=== PATIENT | female | born 1960 | race Caucasian/White ===

== ENCOUNTER 2020-12-04 14:41 | Inpatient (IN) | payer BC ==
[2020-12-04] MEDS ORDERED: Sodium Chloride 0.9% 1000 ML 1,000 ML IV STA (14:47)
[2020-12-04] MEDS ORDERED: Sodium Chloride 0.9% 1000 ML 1,000 ML ONE (15:00)
[2020-12-04 15:12] LABS: Absolute Neutrophil Ct (ANC) 2.23 (1.4-6.9); BASOPHIL % 0.3 % (0.0-0.4); Basophil (Absolute #) 0.01 (0-0.4); Eosinophil (Absolute #) 0 (0-0.5); Hemoglobin 13.7 gm/dl (12.0-16.0); Lymphocyte (Absolute #) 0.86 (1.0-4.6); Lymphocytes % 26.1 % (24.0-44.0); Mean Cell Volume 92.5 fl (78-100); Mean Corpuscular Hemoglobin 30.2 pg (26-32); Mean Corpuscular Hgb Concent. 32.6 g/dl (32-36); Mean Platelet Volume 10.1 fl (7.5-11.0); Monocyte (Absolute #) 0.19 (0.0-1.3); Monocytes % 5.8 % (0.0-12.0); Neutrophil % 67.8 % (36.0-66.0); Platelet Count 189 K/mm3 (150-450); Red Blood Count 4.54 M/mm3 (4.1-5.4); Red Cell Distribution Width 13.2 % (11.5-14.0); White Blood Count 3.3 K/mm3 (4.0-10.5)
--- NOTE | 2020-12-04 15:17 | ERPHSYRPT ---
- History of Present Illness Time Seen by Provider: 12/04/20 15:13 Source: patient Exam Limitations: no limitations Patient Subjective Stated Complaint: Cough Triage Nursing Assessment: Patient brought back to ED via w/c and transferred self to bed. Patient A+O X3. Patient's skin flushed, warm and dry. Patient complains of fever as high 103.3, dry cough when taking a deep breath, Nausea, diarrhea, headache and fatigue since Last Saturday. Patient denies pain or discomfort. Lungs clear a/p matilde. Physician History: History 1-year-old female came to the emergency room with complaining of dry cough fever 102 F chills nausea abdominal pain generalized body ache fever and chills since last Saturday. Patient was tested for coronavirus and which was negative last Saturday patient denies any sick contact. Patient also underwent routine blood tests including complete blood count and CT abdomen and pelvis which was unremarkable. Patient continues to have a fever and chills so she came to the emergency room. She is also complaining of dry cough. Timing/Duration: day(s) (7 days) Fever Severity: moderate Fever Therapy INDUSTRIAL MAINTENANCE REPAIRER: Ibuprofen, Acetaminophen Associated Symptoms: cough, headache, muscle aches, sore throat, weakness Allergies/Adverse Reactions: No Known Drug Allergies Allergy (Unverified 12/04/20 14:52) Home Medications: No Reportable Medications [No Reported Medications] 12/04/20 [History] Hx Influenza Vaccination/Date Given: Yes Hx Pneumococcal Vaccination/Date Given: No Immunizations Up to Date: Yes Travel Risk - International Travel Have you traveled outside of the country in past 3 weeks: No - Coronavirus Screening Are you exhibiting any of the following symptoms?: Yes Symptoms: Fever, Cough: New Onset, Shortness of Breath, Vomiting/Diarrhea, Headaches/Body Aches/Fatigue - Vaccine Status Have you recieved a Covid-19 vaccination: No - Review of Systems Constitutional: Fever, Chills, Fatigue, Malaise Eyes: No Symptoms Ears, Nose, & Throat: No Symptoms, Throat Pain Respiratory: Cough, No Dyspnea Cardiac: No Chest Pain, No Edema, No Syncope Abdominal/Gastrointestinal: Nausea, Appetite Changes, No Abdominal Pain, No Vomiting, No Diarrhea Genitourinary Symptoms: No Dysuria Musculoskeletal: No Back Pain, No Neck Pain Skin: No Rash Neurological: No Dizziness, No Focal Weakness, No Sensory Changes Psychological: No Symptoms Endocrine: No Symptoms All Other Systems: Reviewed and Negative - Past Medical History Pertinent Past Medical History: Yes Neurological History: No Pertinent History ENT History: No Pertinent History Cardiac History: No Pertinent History Respiratory History: No Pertinent History Endocrine Medical History: No Pertinent History Musculoskeletal History: No Pertinent History GI Medical History: No Pertinent History History: No Pertinent History Psycho-Social History: No Pertinent History Female Reproductive Disorders: No Pertinent History - Past Surgical History Past Surgical History: Yes Neuro Surgical History: No Pertinent History Cardiac: No Pertinent History Respiratory: No Pertinent History Gastrointestinal: Appendectomy, Cholecystectomy Genitourinary: No Pertinent History Musculoskeletal: No Pertinent History Female Surgical History: Tubal Ligation - Social History Smoking Status: Former smoker Exposure to second hand smoke: No Drug Use: none Patient Lives Alone: No - Female History Hx Now: No - Nursing Vital Signs Nursing Vital Signs: Initial Vital Signs Temperature 98.8 F 12/04/20 14:54 Pulse Rate 101 H 12/04/20 14:54 Respiratory Rate 18 12/04/20 14:54 O2 Sat by Pulse Oximetry 93 L 12/04/20 14:54 Pain Scale Pain Intensity 0 - Physical Exam General Appearance: no apparent distress, alert Eye Exam: PERRL/EOMI ENT Exam: normal ENT inspection, No pharyngeal erythema, No tonsillar exudate Neck Exam: supple, full range of motion, No meningismus Respiratory Exam: normal breath sounds, lungs clear, no respiratory distress Cardiovascular/Chest Exam: normal heart sounds, regular rate/rhythm, No murmur, No edema Gastrointestinal/Abdominal Exam: soft, non tender, no distention Extremity Exam: non-tender, normal range of motion, normal inspection, normal capillary refill Neurologic Exam: alert, oriented x 3, cooperative, director of sales support II-XII nml as tested, normal mood/affect, sensation nml, No motor deficits Skin Exam: normal color, warm, dry, No rash SpO2: 93 Ordered Tests: Active Orders 24 hr Category Date Time Status CHEST 2 VIEWS (PA AND LAT) Stat Exams 12/04/20 14:53 Taken CBC W DIFF Stat Lab 12/04/20 14:55 Completed CMP Stat Lab 12/04/20 14:55 Completed INFLUENZA A+B WAGNER Stat Lab 12/04/20 14:55 Completed Lactic Acid Stat Lab 12/04/20 15:00 Completed PROCALCITONIN Stat Lab 12/04/20 14:55 Completed UA W/RFX UR CULTURE Stat Lab 12/04/20 14:47 Ordered Transfer Order Routine Transfer 12/04/20 Ordered Medication Summary Discontinued Medications Generic Name Dose Route Start Last Admin Trade Name Krishna PRN Reason Stop Dose Admin Sodium Chloride 1,000 mls @ 999 mls/hr 12/04/20 14:47 12/04/20 16:12 Sodium Chloride 0.9% 1000 Ml IV 12/04/20 15:47 Infused .Q1H1M STA Infusion Sodium Chloride Confirm 12/04/20 15:00 Sodium Chloride 0.9% 1000 Ml Administered 12/04/20 15:01 Dose 1,000 mls @ ud .ROUTE .STK-MED ONE Azithromycin 500 mg in 250 mls @ 250 mls/hr 12/04/20 15:25 12/04/20 16:15 Zithromax 500 Mg/ 250 Ml Nacl Premix IV 12/04/20 16:24 250 ml/hr STAT STA 250 mls/hr Administration Ceftriaxone Sodium/Dextrose 1 g in 50 mls @ 100 mls/hr 12/04/20 15:25 12/04/20 16:13 Rocephin 1 Gm-D5w 50 Ml Bag IV 12/04/20 15:54 Infused STAT STA Infusion Ceftriaxone Sodium/Dextrose Confirm 12/04/20 15:32 Rocephin 1 Gm-D5w 50 Ml Bag Administered 12/04/20 15:33 Dose 1 g in 50 mls @ ud IV .STK-MED ONE Azithromycin Confirm 12/04/20 16:13 Zithromax 500 Mg/ 250 Ml Nacl Premix Administered 12/04/20 16:14 Dose 500 mg in 250 mls @ ud IV .STK-MED ONE Lab/Rad Data: Laboratory Result Diagrams 12/04/20 14:55 12/04/20 14:55 Laboratory Results 12/04/20 12/04/20 12/04/20 Range/Units 15:40 15:00 14:55 WBC (4.0-10.5) K/mm3 RBC (4.1-5.4) M/mm3 Hgb (12.0-16.0) gm/dl Hct (35-47) % MCV (78-100) fl MCH (26-32) pg MCHC (32-36) g/dl RDW (11.5-14.0) % Plt Count (150-450) K/mm3 MPV (7.5-11.0) fl Gran % (36.0-66.0) % Eos # (Auto) (0-0.5) Absolute Lymphs (auto) (1.0-4.6) Absolute Monos (auto) (0.0-1.3) Lymphocytes % (24.0-44.0) % Monocytes % (0.0-12.0) % Eosinophils % (0.00-5.0) % Basophils % (0.0-0.4) % Absolute Granulocytes (1.4-6.9) Basophils # (0-0.4) Sodium (137-145) mmol/L Potassium (3.5-5.1) mmol/L Chloride (98-107) mmol/L Carbon Dioxide (22-30) mmol/L Anion Gap (5-15) MEQ/L BUN (7-17) mg/dL Creatinine (0.52-1.04) mg/dL Estimated GFR ML/MIN Glucose (74-106) mg/dL Lactic Acid 2.1 H (0.4-2.0) Calcium (8.4-10.2) mg/dL Total Bilirubin (0.2-1.3) mg/dL AST (14-36) U/L ALT (0-35) U/L Alkaline Phosphatase (38-126) U/L Serum Total Protein (6.3-8.2) g/dL Albumin (3.5-5.0) g/dL Procalcitonin 0.072 (0.030-0.080) ng/mL Influenza Type A Ag NEGATIVE (NEGATIVE) Influenza Type B Ag NEGATIVE (NEGATIVE) RSV (PCR) NEGATIVE (Negative) SARS-CoV-2 (PCR) POSITIVE A (NEGATIVE) 12/04/20 12/04/20 12/04/20 Range/Units 14:55 14:55 14:55 WBC 3.3 L (4.0-10.5) K/mm3 RBC 4.54 (4.1-5.4) M/mm3 Hgb 13.7 (12.0-16.0) gm/dl Hct 42.0 (35-47) % MCV 92.5 (78-100) fl MCH 30.2 (26-32) pg MCHC 32.6 (32-36) g/dl RDW 13.2 (11.5-14.0) % Plt Count 189 (150-450) K/mm3 MPV 10.1 (7.5-11.0) fl Gran % 67.8 H (36.0-66.0) % Eos # (Auto) 0 (0-0.5) Absolute Lymphs (auto) 0.86 L (1.0-4.6) Absolute Monos (auto) 0.19 (0.0-1.3) Lymphocytes % 26.1 (24.0-44.0) % Monocytes % 5.8 (0.0-12.0) % Eosinophils % 0.0 (0.00-5.0) % Basophils % 0.3 (0.0-0.4) % Absolute Granulocytes 2.23 (1.4-6.9) Basophils # 0.01 (0-0.4) Sodium 134 L (137-145) mmol/L Potassium 3.5 (3.5-5.1) mmol/L Chloride 99 (98-107) mmol/L Carbon Dioxide 25 (22-30) mmol/L Anion Gap 14.0 (5-15) MEQ/L BUN 5 L (7-17) mg/dL Creatinine 0.74 (0.52-1.04) mg/dL Estimated GFR > 60.0 ML/MIN Glucose 115 H (74-106) mg/dL Lactic Acid (0.4-2.0) Calcium 8.6 (8.4-10.2) mg/dL Total Bilirubin 0.40 (0.2-1.3) mg/dL AST 57 H (14-36) U/L ALT 33 (0-35) U/L Alkaline Phosphatase 56 (38-126) U/L Serum Total Protein 7.6 (6.3-8.2) g/dL Albumin 4.2 (3.5-5.0) g/dL Procalcitonin (0.030-0.080) ng/mL Influenza Type A Ag NEGATIVE (NEGATIVE) Influenza Type B Ag NEGATIVE (NEGATIVE) RSV (PCR) (Negative) SARS-CoV-2 (PCR) (NEGATIVE) - Progress Progress: unchanged Will see patient in: hospital (observation) Counseled pt/family regarding: lab results, diagnosis, need for follow-up, rad results - Departure Departure Disposition: Observation Clinical Impression: Pneumonia due to COVID-19 virus Condition: Stable Critical Care Time: Yes Critical Care Time(excluding separately billable procedures): Critical 30-74 mins Referrals: ORALIA COLON [Primary Care Provider] -
[2020-12-04 15:20] LABS: ALBUMIN 4.2 g/dL (3.5-5.0); ALKALINE PHOSPHATASE 56 U/L (38-126); BLOOD UREA NITROGEN 5 mg/dL (7-17); CHLORIDE 99 mmol/L (98-107); Calcium 8.6 mg/dL (8.4-10.2); Carbon Dioxide 25 mmol/L (22-30); Creatinine 1 0.74 mg/dL (0.52-1.04); EST GLOMERULAR FILTRATION RATE > 60.0 ML/MIN; Glucose 115 mg/dL (74-106); Potassium 3.5 mmol/L (3.5-5.1); SGOT/AST 57 U/L (14-36); SGPT/ALT 33 U/L (0-35); SODIUM 134 mmol/L (137-145); Total Protein 7.6 g/dL (6.3-8.2)
[2020-12-04] MEDS ORDERED: ROCEPHIN 1 Gm-D5w 50 ml Bag** 1 G/50 ML IVPB IV STA (15:25)
[2020-12-04] MEDS ORDERED: Zithromax 500 MG/ 250 ML NaCl Premix 500 MG/250 ML IVPB IV STA (15:25)
[2020-12-04] MEDS ORDERED: ROCEPHIN 1 Gm-D5w 50 ml Bag** 1 G/50 ML IVPB IV ONE (15:32)
[2020-12-04 15:45] LABS: INFLUENZA A NEGATIVE (NEGATIVE); INFLUENZA B NEGATIVE (NEGATIVE)
[2020-12-04] MEDS ORDERED: Zithromax 500 MG/ 250 ML NaCl Premix 500 MG/250 ML IVPB IV ONE (16:13)
[2020-12-04 16:27] LABS: INFLUENZA A NEGATIVE (NEGATIVE); INFLUENZA B NEGATIVE (NEGATIVE); RESPIRATORY SYNCTIAL VIRUS NEGATIVE (Negative)
[2020-12-04] MEDS ORDERED: TYLENOL 325 MG PO STA (17:13)
[2020-12-04] MEDS ORDERED: TYLENOL 325 MG ONE (17:15)
[2020-12-04] MEDS ORDERED: Zofran 4 MG/2 ML VIAL IV PRN (17:33)
[2020-12-04] MEDS ORDERED: VENTOLIN COMMON CANISTER IH ONE (17:33)
[2020-12-04] MEDS ORDERED: Lactated Ringers 1,000 ML IV SCH (17:33)
[2020-12-04] MEDS ORDERED: VENTOLIN COMMON CANISTER IH PRN (17:47)
[2020-12-04] MEDS: VENTOLIN COMMON CANISTER IH SCH (17:48)
[2020-12-04 17:50] LABS: INR 1.18 (0.8-3.0); PROTIME 13.4 SECONDS (9.95-12.35)
[2020-12-04 18:00] LABS: Appearance CLEAR (CLEAR); Bilirubin NEGATIVE (NEGATIVE); Blood NEGATIVE Ery/ul (0-5); Glucose NEGATIVE (NEGATIVE); Ketones TRACE (NEGATIVE); Leukocyte Esterase NEGATIVE (NEGATIVE); Nitrite NEGATIVE (NEGATIVE); Protein,Urine Dip NEGATIVE (Negative); Specific Gravity 1.003 (1.005-1.025); Urobilinogen NEGATIVE mg/dL (0-1)
[2020-12-04 18:32] LABS: Ferritin 515 ng/mL (11.1-264); LDH-LACTATE DEHYDROGENASE 336 U/L (120-246)
[2020-12-04] MEDS: Sodium Chloride 0.9% 1000 ML 1,000 ML IV SCH (19:52)
[2020-12-04] MEDS ORDERED: ENOXAPARIN SODIUM SQ ONE (20:59)
[2020-12-04] MEDS: Pepcid 20 MG VIAL IV SCH (21:02)
--- NOTE | 2020-12-04 22:53 | XRAY ---
Indication: Fever and chills. Comparison: None PA/lateral chest demonstrates subtle inferior right upper lobe and left lower lobe patchy airspace disease without consolidation/effusion. Heart not enlarged. Bony thorax intact with mild degenerative changes.
[2020-12-05] MEDS ORDERED: Tums EX 750 MG PO PRN (01:43)
[2020-12-05] MEDS: TYLENOL 325 MG PO PRN ×2 (05:23→12:08)
[2020-12-05 05:36] LABS: Absolute Neutrophil Ct (ANC) 1.39 (1.4-6.9); BASOPHIL % 0.4 % (0.0-0.4); Basophil (Absolute #) 0.01 (0-0.4); Eosinophil (Absolute #) 0 (0-0.5); Hematocrit 36.4 % (35-47); Hemoglobin 11.8 gm/dl (12.0-16.0); Lymphocyte (Absolute #) 0.83 (1.0-4.6); Lymphocytes % 34.6 % (24.0-44.0); Mean Cell Volume 93.8 fl (78-100); Mean Corpuscular Hemoglobin 30.4 pg (26-32); Mean Corpuscular Hgb Concent. 32.4 g/dl (32-36); Mean Platelet Volume 9.9 fl (7.5-11.0); Monocyte (Absolute #) 0.17 (0.0-1.3); Monocytes % 7.1 % (0.0-12.0); Neutrophil % 57.9 % (36.0-66.0); Platelet Count 173 K/mm3 (150-450); Red Blood Count 3.88 M/mm3 (4.1-5.4); Red Cell Distribution Width 13.2 % (11.5-14.0); White Blood Count 2.4 K/mm3 (4.0-10.5)
[2020-12-05 05:48] LABS: INR 1.22 (0.8-3.0); PROTIME 13.8 SECONDS (9.95-12.35)
[2020-12-05 05:53] LABS: ALBUMIN 3.2 g/dL (3.5-5.0); ALKALINE PHOSPHATASE 45 U/L (38-126); ANION GAP 8.7 MEQ/L (5-15); BLOOD UREA NITROGEN 4 mg/dL (7-17); CHLORIDE 109 mmol/L (98-107); Calcium 7.9 mg/dL (8.4-10.2); Carbon Dioxide 23 mmol/L (22-30); EST GLOMERULAR FILTRATION RATE > 60.0 ML/MIN; Glucose 108 mg/dL (74-106); NT PRO BNP 162 pg/mL (0-900); Potassium 3.8 mmol/L (3.5-5.1); SGOT/AST 46 U/L (14-36); SGPT/ALT 28 U/L (0-35); SODIUM 137 mmol/L (137-145)
--- NOTE | 2020-12-05 08:44 | XRAY ---
Indication: Pneumonia. Comparison: One day earlier. Portable chest again demonstrates right upper and left lower lobe airspace disease with new small bibasilar effusions. Heart is now borderline enlarged. Bony thorax intact.
[2020-12-05] MEDS: Pepcid 20 MG VIAL IV SCH ×2 (09:39→21:00)
[2020-12-05] MEDS ORDERED: ENOXAPARIN SODIUM SQ SCH (10:00)
[2020-12-05] MEDS: VENTOLIN COMMON CANISTER IH SCH (11:15)
[2020-12-05] MEDS ORDERED: Mucinex 600MG ER Tabs PO PRN (11:55)
[2020-12-05] MEDS ORDERED: NON-FORMULARY ITEM (Meclizine Hcl [Meclizine Hcl] 12.5 MG) PO PRN (12:02)
[2020-12-05] MEDS: Decadron 4 MG INJ IV SCH ×2 (12:07→21:00)
[2020-12-05] MEDS ORDERED: ANTIVERT 25 MG PO PRN (12:14)
[2020-12-05] MEDS ORDERED: REMDESIVIR 200 MG in Sodium Chloride 0.9% 250 ML 250 ML IV SCH (13:00)
[2020-12-05] MEDS ORDERED: MEDICATION INTERVENTION MC SCH ×2 (13:00)
--- NOTE | 2020-12-05 13:14 | HP ---
CHIEF COMPLAINT: The patient has been coughing for seven days. HISTORY OF PRESENT ILLNESS: She has had a fever up to 102 to 103F. She had two negative COVID tests but came in 12 hours ago and tested positive. She is not throwing up, no nausea. Nonproductive cough. She had loss of her taste and smell. Does not know that she has been in contact with COVID. However, she works in a [employer] office in [place]. She said they have been vaccinated. Family, son and their six children had COVID. She quit smoking ten years ago. She has some deep chest pain when she takes a deep breath. Presently she came in afebrile with oxygen level of 88% and has been on 3 liters. She has some myalgia. TRAVEL RISK: No travel. CORONAVIRUS SCREENING: Associated symptoms: Cough, headache, muscle aches, sore throat, weakness. She had influenza but not the pneumonia vaccine. MEDICATIONS: Ibuprofen, Tylenol. ALLERGIES: NKDA. PAST MEDICAL HISTORY: Childbirth. PAST SURGICAL HISTORY: Appendectomy. Cholecystectomy. Tubal ligation. REVIEW OF SYSTEMS: CONSTITUTIONAL: Fever, chills, aches, malaise. HEENT: Very sore throat. RESPIRATORY: Does have pain when coughing at times, frequent dry cough. ABDOMEN: A little bit of nausea. Decreased appetite. Decrease in taste. No diarrhea. : No dysuria. MUSCULOSKELETAL: Aching all over. No chronic ache problems. SOCIAL HISTORY: Quit smoking ten years ago. Lives with her . PHYSICAL EXAMINATION: The patient is alert, orientated, well kept, pleasant and cooperative. VITAL SIGNS: Temperature 98F, pulse 100, respirations 18. O2 saturation on 2 liters is 93%. Pain intensity 0. HEENT: Pupils equal and reactive to light. Throat looks normal. CHEST: Few crackles bilateral. CVS: No murmurs or gallops. ABDOMEN: Soft, not obese. No masses or organomegaly. EXTREMITIES: No cyanosis. No rashes. LAB DATA AND TESTS: Chest x-ray showed bilateral infiltrates. Treatment in the emergency room she was treated with Zithromax and Rocephin while awaiting her COVID test to come back, I assume. Her white count is 3.3, hemoglobin 13.6. Electrolytes are normal. Influenza negative. Lactic acid slightly low at 2.1. Procalcitonin 0.072 normal. Sodium 134, potassium 3.5, glucose 115. Liver enzymes AST is minimally elevated at 57. D-dimer was around 500. IMPRESSION: The patient is a COVID positive, healthy in the past female with temperature 100.2F, nonproductive cough and mild hypoxia. At this time she will be started with Remdesivir, Decadron and anticoagulation. Her home medicines were pretty well continued which include calcium carbonate, vitamin C, B12 100 mcg, Krill oil 1 each day, magnesium 30 q.d., meclizine 12.5 mg PRN dizziness, multivitamin, vitamin E. After she is stabilized on 2 liters for 24 hours can go home on oxygen, definitely will continue Remdesivir. PROGNOSIS: Prognosis felt to be good.
[2020-12-05] MEDS: VITAMIN B-12 100 MCG PO SCH (15:04)
[2020-12-05] MEDS: THERAGRAN MULTIVITAMIN PO SCH (15:05)
[2020-12-05] MEDS: Calcium 500MG W/Vit D Tablet PO SCH (15:05)
[2020-12-05] MEDS: ENOXAPARIN SODIUM SQ SCH (19:15)
[2020-12-05] MEDS: Sodium Chloride 0.9% 1000 ML 1,000 ML IV SCH (21:01)
[2020-12-06] MEDS: VITAMIN B-12 100 MCG PO SCH (09:53)
[2020-12-06] MEDS: Calcium 500MG W/Vit D Tablet PO SCH (09:53)
[2020-12-06] MEDS: THERAGRAN MULTIVITAMIN PO SCH (09:53)
[2020-12-06] MEDS: Decadron 4 MG INJ IV SCH ×2 (09:54→21:13)
[2020-12-06] MEDS: Pepcid 20 MG VIAL IV SCH ×2 (09:54→21:13)
[2020-12-06] MEDS ORDERED: Lomotil PO PRN (09:55)
[2020-12-06] MEDS ORDERED: CEPACOL SORE THROAT LOZENGE PO PRN (09:56)
[2020-12-06] MEDS ORDERED: NON-FORMULARY ITEM (Calcium Citrate/Vitamin D3 [Citracal + D Caplet] 1 EACH) PO SCH (10:00)
[2020-12-06] MEDS ORDERED: DHA PO SCH (10:00)
[2020-12-06] MEDS ORDERED: EPA PO SCH (10:00)
[2020-12-06] MEDS ORDERED: KRILL PO SCH (10:00)
[2020-12-06] MEDS ORDERED: [UNRECOGNIZED DRUG - OTHER] PO SCH (10:00)
[2020-12-06] MEDS ORDERED: PHOSPHO PO SCH (10:00)
[2020-12-06] MEDS ORDERED: AST PO SCH (10:00)
[2020-12-06] MEDS ORDERED: MAGNESIUM 30 MG PO SCH (10:00)
[2020-12-06] MEDS ORDERED: FOLIC PO SCH (10:00)
[2020-12-06] MEDS ORDERED: MULTIVIT MINERALS PO SCH (10:00)
[2020-12-06] MEDS ORDERED: [UNRECOGNIZED DRUG - OTHER] PO SCH (10:00)
[2020-12-06] MEDS ORDERED: GINKGO PO SCH (10:00)
[2020-12-06] MEDS: BABY ASPIRIN 81 MG CHEW PO PRN (10:19)
[2020-12-06] MEDS ORDERED: Lasix 20 MG/2 ML IV SCH (11:00)
[2020-12-06] MEDS: REMDESIVIR 100 MG in Sodium Chloride 0.9% 100 ML IVPB 100 ML IV SCH (13:10)
[2020-12-06] MEDS: ENOXAPARIN SODIUM SQ SCH (16:53)
[2020-12-07] MEDS: Calcium 500MG W/Vit D Tablet PO SCH (09:27)
[2020-12-07] MEDS: Pepcid 20 MG VIAL IV SCH ×2 (09:27→21:00)
[2020-12-07] MEDS: Decadron 4 MG INJ IV SCH ×2 (09:27→21:00)
[2020-12-07] MEDS: THERAGRAN MULTIVITAMIN PO SCH (09:27)
[2020-12-07] MEDS: VITAMIN B-12 100 MCG PO SCH (09:27)
[2020-12-07] MEDS: REMDESIVIR 100 MG in Sodium Chloride 0.9% 100 ML IVPB 100 ML IV SCH (13:40)
[2020-12-07] MEDS: ENOXAPARIN SODIUM SQ SCH (15:13)
[2020-12-08] MEDS: BABY ASPIRIN 81 MG CHEW PO PRN (05:10)
[2020-12-08] MEDS: VITAMIN B-12 100 MCG PO SCH (08:22)
[2020-12-08] MEDS: THERAGRAN MULTIVITAMIN PO SCH (08:22)
[2020-12-08] MEDS: Calcium 500MG W/Vit D Tablet PO SCH (08:22)
[2020-12-08] MEDS: Decadron 4 MG INJ IV SCH (08:23)
[2020-12-08] MEDS: Pepcid 20 MG VIAL IV SCH (08:23)
[2020-12-08] MEDS: REMDESIVIR 100 MG in Sodium Chloride 0.9% 100 ML IVPB 100 ML IV SCH (09:32)
--- NOTE | 2020-12-08 09:51 | DS ---
ADMISSION DIAGNOSES: 1) COVID pneumonia. 2) COVID gastroenteritis. 3) Dehydration. 4) Hypoxia. DISCHARGE DIAGNOSES: 1) COVID PNEUMONIA. 2) COVID GASTROENTERITIS. 3) DEHYDRATION. 4) HYPOXIA. DISPOSITION: Discharge medications include baby aspirin 1 q.d. for two weeks, prednisone 20 q.d. for two weeks. Follow up with Dr. Momin in two weeks. Remain in isolation until Saturday or asymptomatic. Continue oxygen at 2 to 3 liters. HOSPITAL COURSE: The patient presented with vomiting and abdominal pain in the emergency room on Saturday night. Her O2 saturation was slightly low at 88. The chest x-ray showed bilateral fluffiness at the bases typical for COVID. A rapid COVID-19 test was positive. She was admitted. She was started on Remdesivir, Decadron and Lovenox Saturday morning. Continue her calcium, B12, magnesium, meclizine, multivitamins. We initially increased her oxygen Saturday evening to 3 liters and she kind of remained there the rest of her stay. However during the day she would be talking and up to 95% and at night she may drop down to 88%. She has been in chronic bradycardia since she has been here. Her EKG was normal except with the bradycardia at times. Her D-dimer maxed out at 560 which is barely over normal at 500. The white count was 2.4, hemoglobin 11.8. Lactic acid was 0.7 normal. Pro-time was 13.8 on admission. The patient's nausea and abdominal pain went away after 24 hours. Actually needed some laxatives later. Last chest x-ray was 12/05/2020, showed right upper and left lower airspace disease with small effusions now borderline enlarged. She was given 20 of Lasix that day as her oxygen level demand went up to 3 and she had been getting fluids at 100 cc/hour after a bolus. After that she did better. The patient has been feeling well and pushing to go home the last 48 hours. She is ambulatory, eating well and not short of breath at rest or talking. She will be sent home on 3 liters to be titrated by the O2 saturations. Follow up with her doctor. Medicines noted above. PROGNOSIS: Quite good. She is to return immediately if she gets more short of breath, vomiting, diarrhea or fever.
[2020-12-08 10:07] VITALS: O2SAT 93
[2020-12-08 13:49] VITALS: BP 111/65; PULSE 60
== END 2020-12-08 13:40 | disposition home or self-care (01) | DRG 179 ==
LOC: ED 14:41 → MED SURG 17:26 → OBSVTOIN 12-05 12:00
PROVIDERS: ADMIT General Practice; ATTEND Family Medicine
DX: U07.1 COVID-19 (principal); J12.82 Pneumonia due to coronavirus disease 2019; K52.9 Noninfective gastroenteritis and colitis, unspecified; R10.9 Unspecified abdominal pain; R51.9 Headache, unspecified; E86.0 Dehydration; R09.02 Hypoxemia; R11.2 Nausea with vomiting, unspecified; Z79.899 Other long term (current) drug therapy
CPT/HCPCS: 0241U; 36415; 71045; 71046; 80053; 81001; 82728; 83605; 83615; 83880; 84145; 85025; 85379; 85610; 87400; 93005; 93268; 94640; 94760; 94762; 96360; 96365; 96367; 99284; 99291; J0456; J0696; J1100; J1650; J1940; A9270-GY; G0378

== ENCOUNTER 2023-09-29 19:10 | Emergency (ER) | payer MEDICARE ==
--- NOTE | 2023-09-29 19:42 | ERPHSYRPT ---
- History of Present Illness Time Seen by Provider: 09/29/23 19:42 Historian: patient Exam Limitations: no limitations Physician History: This is a 63-year-old white female patient who began having a "stitch" in the left anterior lateral ribs underneath her left breast that worsens with movement and deep breath. She has never had this before. Patient has no known diagnosed cardiac disease. She has not had a fever. She has not had a cough. She does have a small ventral hernia that is to be operated on in the next week or 2. She has had an appendectomy, bilateral tube ligation and cholecystectomy in the past. Patient was concerned because the pain was significant yesterday but even worse today. She did not fall or suffer any trauma to this area. Timing/Duration: yesterday, worse Quality: sharpness, stabbing Pain Radiation: no radiation Severity of Pain-Max: moderate Severity of Pain-Current: moderate Modifying Factors: Improves With: movement (Worsens), other (Deep breath worsens) Associated Symptoms: denies symptoms, No chest pain, No fever/chills, No shortness of breath, No vomiting Previous symptoms: no prior history Allergies/Adverse Reactions: No Known Drug Allergies Allergy (Verified 09/29/23 19:53) Home Medications: Ascorbic Acid 500 mg [Vitamin C 500 MG] 500 mg PO DAILY 12/04/20 [History] Calcium Citrate/Vitamin D3 [Citracal + D Caplet] 1 each PO DAILY 12/04/20 [History] Cyanocobalamin 100 Mcg [Vitamin B-12 100 Mcg] 100 mcg PO DAILY 12/04/20 [History] Krill/Om-3/Dha/Epa/Phospho/Ast [Krill Oil 500 mg Softgel] 1 each PO DAILY 12/04/20 [History] Berberin With [place] Cinnamon 1 cap PO DAILY 09/29/23 [History] Biotin/Keratin [Biotin Plus Keratin Tablet] 1 each PO DAILY 09/29/23 [History] Chromium Picolinate 200 mcg PO DAILY 09/29/23 [History] Elderberry Fruit [Elderberry] 350 mg PO DAILY 09/29/23 [History] Multivit-Min/Iron/Folic/Lutein [Centrum Silver Women Tablet] 1 each PO DAILY 09/29/23 [History] Super Collagenwith Vit C/Bioti 1 cap PO DAILY 09/29/23 [History] Turmeric Root Extract [Turmeric Curcumin] 500 mg PO DAILY 09/29/23 [History] Hx Influenza Vaccination/Date Given: Yes Hx Pneumococcal Vaccination/Date Given: No Travel Risk - International Travel Have you traveled outside of the country in past 3 weeks: No - Coronavirus Screening Are you exhibiting any of the following symptoms?: No Close contact with a COVID-19 positive Pt in past 14-21 Days: No - Vaccine Status Have you recieved a Covid-19 vaccination: No - Review of Systems Constitutional: No Symptoms Eyes: No Symptoms Ears, Nose, & Throat: No Symptoms Respiratory: No Symptoms Cardiac: Chest Pain (Pain anterior lateral low ribs on the left side. Worse with movement and deep breath) Abdominal/Gastrointestinal: No Symptoms Genitourinary Symptoms: No Symptoms Musculoskeletal: No Symptoms Skin: No Symptoms Neurological: No Symptoms Psychological: No Symptoms Endocrine: No Symptoms Hematologic/Lymphatic: No Symptoms Immunological/Allergic: No Symptoms All Other Systems: Reviewed and Negative - Past Medical History Pertinent Past Medical History: Yes Neurological History: No Pertinent History ENT History: No Pertinent History Cardiac History: No Pertinent History Respiratory History: No Pertinent History Endocrine Medical History: No Pertinent History Musculoskeletal History: No Pertinent History GI Medical History: No Pertinent History History: No Pertinent History Psycho-Social History: No Pertinent History Female Reproductive Disorders: No Pertinent History - Past Surgical History Past Surgical History: Yes Neuro Surgical History: No Pertinent History Cardiac: No Pertinent History Respiratory: No Pertinent History Gastrointestinal: Appendectomy, Cholecystectomy Genitourinary: No Pertinent History Musculoskeletal: No Pertinent History Female Surgical History: Tubal Ligation - Social History Smoking Status: Former smoker Exposure to second hand smoke: No Drug Use: none Patient Lives Alone: No - Nursing Vital Signs Nursing Vital Signs: Initial Vital Signs Temperature 98.1 F 09/29/23 19:39 Pulse Rate 79 09/29/23 19:39 Respiratory Rate 16 09/29/23 19:39 Blood Pressure 127/84 09/29/23 19:39 O2 Sat by Pulse Oximetry 98 09/29/23 19:39 Pain Scale Pain Intensity 5 - Physical Exam General Appearance: no apparent distress, alert, anxiety Eye Exam: PERRL/EOMI, eyes nml inspection Ears, Nose, Throat Exam: normal ENT inspection, moist mucous membranes, tonsillar exudate Neck Exam: normal inspection, non-tender, supple Respiratory Exam: normal breath sounds, chest tenderness (Low left anterior lateral rib pain worse with deep breath and), lungs clear, airway intact, No respiratory distress ( movement) Cardiovascular Exam: regular rate/rhythm, normal heart sounds, normal peripheral pulses Gastrointestinal/Abdomen Exam: soft, normal bowel sounds, No tenderness Pelvic Exam: not done Rectal Exam: not done Back Exam: normal inspection, normal range of motion, No CVA tenderness, No vertebral tenderness Extremity Exam: normal inspection, normal range of motion, pelvis stable Neurologic Exam: alert, oriented x 3, cooperative, 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, normal mood/affect, nml cerebellar function, nml station & gait, sensation nml Skin Exam: normal color, warm, dry Lymphatic Exam: No adenopathy SpO2 Interpretation: normal O2 Delivery: Room Air - Course Nursing assessment & vital signs reviewed: Yes EKG Interpreted by Me: RATE (70), Sinus Rhythm, Left [place] Deviation (Order), NORMAL INTERVALS, NORMAL QRS, NORMAL ST-T, Other (No acute ischemic changes on today's twelve-lead EKG.) Ordered Tests: Active Orders 24 hr Category Date Time Status EKG-ER Only STAT Care 09/29/23 20:20 Active IV Insertion STAT Care 09/29/23 20:20 Active ABDOMEN AND PELVIS W/0 CONTRAS [CT] Stat Exams 09/29/23 20:18 Completed CHEST 1 VIEW (PORTABLE) Stat Exams 09/29/23 20:20 Taken AMYLASE Stat Lab 09/29/23 20:56 Completed CBC W DIFF Stat Lab 09/29/23 20:56 Completed CMP Stat Lab 09/29/23 20:56 Completed LIPASE Stat Lab 09/29/23 20:56 Completed TROPONIN Q4H Lab 09/29/23 20:56 Completed TROPONIN Q4H Lab 09/30/23 00:30 Ordered TROPONIN Q4H Lab 09/30/23 04:30 Ordered UA W/RFX UR CULTURE Stat Lab 09/29/23 20:35 Completed Medication Summary Discontinued Medications Generic Name Dose Route Start Last Admin Trade Name Freq PRN Reason Stop Dose Admin Al Hydrox/Mg Hydrox/Simethicone Confirm 09/29/23 22:01 Mag Hydrox/Al Hydrox/Simeth 30 Ml Udcup Administered 09/29/23 22:02 Dose 30 ml .ROUTE .STK-MED ONE Lidocaine HCl Confirm 09/29/23 22:01 Lidocaine Hcl 2% Viscous 15 Ml Udcup Administered 09/29/23 22:02 Dose 15 ml .ROUTE .STK-MED ONE Magnesium Hydroxide 45 ml 09/29/23 21:43 09/29/23 22:03 Mag Hydrx/Alum Hyd/Simeth/Lido 45 Ml Bottle PO 09/29/23 21:44 45 ml STAT ONE Administration Lab/Rad Data: Laboratory Result Diagrams 09/29/23 20:56 09/29/23 20:56 Laboratory Results 09/29/23 09/29/23 09/29/23 Range/Units 20:56 20:56 20:56 WBC 7.9 (4.0-10.5) x10^3/uL RBC 4.44 (4.1-5.4) x10^6/uL Hgb 13.5 (12.0-16.0) g/dL Hct 41.2 (35-47) % MCV 92.8 (78-100) fL MCH 30.4 (26-32) pg MCHC 32.8 (32-36) g/dL RDW 12.6 (11.5-14.0) % Plt Count 320 (150-450) x10^3/uL MPV 10.0 (7.5-11.0) fL Gran % 58.0 (36.0-66.0) % Immature Gran % (Auto) 0.4 (0.00-0.4) % Nucleat RBC Rel Count 0.0 (0.00-0.1) % Eos # (Auto) 0.24 (0-0.5) x10^3/uL Immature Gran # (Auto) 0.03 (0.00-0.03) x10^3u/L Absolute Lymphs (auto) 2.43 (1.0-4.6) x10^3/uL Absolute Monos (auto) 0.57 (0.0-1.3) x10^3/uL Absolute Nucleated RBC 0.00 (0.00-0.01) x10^3u/L Lymphocytes % 30.6 (24.0-44.0) % Monocytes % 7.2 (0.0-12.0) % Eosinophils % 3.0 (0.00-5.0) % Basophils % 0.8 (0.0-0.4) % Absolute Granulocytes 4.60 (1.4-6.9) x10^3/uL Basophils # 0.06 (0-0.4) x10^3/uL Sodium 134 L (137-145) mmol/L Potassium 4.3 (3.5-5.1) mmol/L Chloride 104 (98-107) mmol/L Carbon Dioxide 24 (22-30) mmol/L Anion Gap 10.2 (5-15) MEQ/L BUN 18 H (7-17) mg/dL Creatinine 0.89 (0.52-1.04) mg/dL Estimated GFR 71.9 ML/MIN Glucose 87 (74-106) mg/dL Calcium 9.5 (8.4-10.2) mg/dL Total Bilirubin 0.50 (0.2-1.3) mg/dL AST 27 (14-36) U/L ALT 18 (0-35) U/L Alkaline Phosphatase 58 (38-126) U/L Troponin I < 0.012 (0.000-0.034) ng/mL Serum Total Protein 6.8 (6.3-8.2) g/dL Albumin 4.1 (3.5-5.0) g/dL Amylase 123 H (30-110) U/L Lipase 230 (23-300) U/L Urine Color (Yellow) Urine Appearance (Clear) Urine pH (4.6-8.0) Ur Specific [place] (1.005-1.030) Urine Protein (Negative) Urine Glucose (UA) (Negative) mg/dL Urine Ketones (Negative) Urine Blood (Negative) Urine Nitrite (Negative) Urine Bilirubin (Negative) Urine Urobilinogen (0.2) mg/dL Ur Leukocyte Esterase (Negative) Urine Microscopic RBC (0-5) /HPF Urine Microscopic WBC (0-5) /HPF Ur Epithelial Cells (None Seen) /HPF Urine Bacteria (None Seen) /HPF Urine Culture Reflexed (NO) 09/29/23 Range/Units 20:35 WBC (4.0-10.5) x10^3/uL RBC (4.1-5.4) x10^6/uL Hgb (12.0-16.0) g/dL Hct (35-47) % MCV (78-100) fL MCH (26-32) pg MCHC (32-36) g/dL RDW (11.5-14.0) % Plt Count (150-450) x10^3/uL MPV (7.5-11.0) fL Gran % (36.0-66.0) % Immature Gran % (Auto) (0.00-0.4) % Nucleat RBC Rel Count (0.00-0.1) % Eos # (Auto) (0-0.5) x10^3/uL Immature Gran # (Auto) (0.00-0.03) x10^3u/L Absolute Lymphs (auto) (1.0-4.6) x10^3/uL Absolute Monos (auto) (0.0-1.3) x10^3/uL Absolute Nucleated RBC (0.00-0.01) x10^3u/L Lymphocytes % (24.0-44.0) % Monocytes % (0.0-12.0) % Eosinophils % (0.00-5.0) % Basophils % (0.0-0.4) % Absolute Granulocytes (1.4-6.9) x10^3/uL Basophils # (0-0.4) x10^3/uL Sodium (137-145) mmol/L Potassium (3.5-5.1) mmol/L Chloride (98-107) mmol/L Carbon Dioxide (22-30) mmol/L Anion Gap (5-15) MEQ/L BUN (7-17) mg/dL Creatinine (0.52-1.04) mg/dL Estimated GFR ML/MIN Glucose (74-106) mg/dL Calcium (8.4-10.2) mg/dL Total Bilirubin (0.2-1.3) mg/dL AST (14-36) U/L ALT (0-35) U/L Alkaline Phosphatase (38-126) U/L Troponin I (0.000-0.034) ng/mL Serum Total Protein (6.3-8.2) g/dL Albumin (3.5-5.0) g/dL Amylase (30-110) U/L Lipase (23-300) U/L Urine Color Yellow (Yellow) Urine Appearance Clear (Clear) Urine pH 6.0 (4.6-8.0) Ur Specific [place] <=1.005 (1.005-1.030) Urine Protein Negative (Negative) Urine Glucose (UA) Negative (Negative) mg/dL Urine Ketones Negative (Negative) Urine Blood Negative (Negative) Urine Nitrite Negative (Negative) Urine Bilirubin Negative (Negative) Urine Urobilinogen 0.2 (0.2) mg/dL Ur Leukocyte Esterase Negative (Negative) Urine Microscopic RBC 0-2 (0-5) /HPF Urine Microscopic WBC 0-2 (0-5) /HPF Ur Epithelial Cells None Seen (None Seen) /HPF Urine Bacteria None Seen (None Seen) /HPF Urine Culture Reflexed NO (NO) - Progress Progress: improved, pain not gone completely, re-examined Progress Note: 09/29/23 21:54 This patient's medical issue is 1 of moderate complexity. The level of complexity in the workup performed is based on review of the patient's past medical history, review of the patient's medication list, review of the patient's drug allergy list, history of present illness and physical findings on examination. The workup in this patient includes placement of intravenous line, CBC, CMP, troponin level, amylase level, lipase level, urinalysis, chest x-ray and CT scan of the abdomen pelvis. Patient does not want any narcotics at this point. She will try a GI cocktail. 09/29/23 22:13 Chest x-ray was interpreted by me. The bony thorax appears to be intact. There is no evidence of any acute cardiopulmonary process. I interpreted the laboratory data results. There is no evidence of acute, emergent medical issue based on her laboratory data results. 09/29/23 22:32 CT scan of the abdomen pelvis without contrast was interpreted by the radiologist and I reviewed the impression. There is no evidence of renal calculi. There is no evidence of hydroureteronephrosis. There is colonic di verticula present without diverticulitis. There is an age-indeterminate compression deformity of the superior endplate of L1 vertebra of less than 10% Counseled pt/family regarding: lab results, diagnosis, need for follow-up, rad results Medical Desision Making - Independent Historian Additional History obtained from: Spouse - Diagnostic Testing Diagnostic test were ordered, analyzed, and reviewed by me: Yes Radiological Interpretation: Interpreted by me, Reviewed by me, Teleradiologist Report - Risk of complications Low Risk: Low risk of morbidity from additional dx testing or treatment - Departure Departure Disposition: Home Clinical Impression: Rib pain on left side, Left flank pain Condition: Stable Critical Care Time: No Referrals: ORALIA COLON NP [Primary Care Provider] - Follow up/PCP as directed Additional Instructions: Drink plenty of fluids. Take your medications as prescribed. Follow-up with your primary care provider tomorrow morning, 09/30/2023, to make arrangements for follow-up appointment for further evaluation and management.
[2023-09-29 19:53] VITALS: TEMP 98.1
[2023-09-29 21:00] LABS: BASOPHIL % 0.8 % (0.0-0.4); Basophil (Absolute #) 0.06 x10^3/uL (0-0.4); Eosinophil (Absolute #) 0.24 x10^3/uL (0-0.5); Hematocrit 41.2 % (35-47); Hemoglobin 13.5 g/dL (12.0-16.0); IMMATURE GRAN # 0.03 x10^3u/L (0.00-0.03); IMMATURE GRAN % 0.4 % (0.00-0.4); Lymphocyte (Absolute #) 2.43 x10^3/uL (1.0-4.6); Lymphocytes % 30.6 % (24.0-44.0); Mean Cell Volume 92.8 fL (78-100); Mean Corpuscular Hemoglobin 30.4 pg (26-32); Mean Corpuscular Hgb Concent. 32.8 g/dL (32-36); Monocyte (Absolute #) 0.57 x10^3/uL (0.0-1.3); Monocytes % 7.2 % (0.0-12.0); Platelet Count 320 x10^3/uL (150-450); Red Blood Count 4.44 x10^6/uL (4.1-5.4); Red Cell Distribution Width 12.6 % (11.5-14.0); White Blood Count 7.9 x10^3/uL (4.0-10.5)
[2023-09-29 21:09] LABS: Appearance Clear (Clear); Bilirubin Negative (Negative); Blood Negative (Negative); Glucose, Urine Negative (Negative); Ketones Negative (Negative); Leukocyte Esterase Negative (Negative); Nitrite Negative (Negative); Protein,Urine Dip Negative (Negative); Specific Gravity <=1.005 (1.005-1.030); Urobilinogen 0.2 mg/dL (0.2)
[2023-09-29 21:10] LABS: ADD URINE CULTURE? NO (NO); Bacteria None Seen /HPF (None Seen); Epithelial Cells None Seen /HPF (None Seen); RBC 0-2 /HPF (0-5); WBC 0-2 /HPF (0-5)
[2023-09-29 21:21] LABS: ALBUMIN 4.1 g/dL (3.5-5.0); ANION GAP 10.2 MEQ/L (5-15); BILIRUBIN,TOTAL 0.5 mg/dL (0.2-1.3); Calcium 9.5 mg/dL (8.4-10.2); Creatinine 1 0.89 mg/dL (0.52-1.04); EST GLOMERULAR FILTRATION RATE 71.9 ML/MIN; Potassium 4.3 mmol/L (3.5-5.1); Total Protein 6.8 g/dL (6.3-8.2)
--- NOTE | 2023-09-29 21:38 | XRAY ---
CLINICAL HISTORY: Bilateral flank pain TECHNIQUE: Contiguous axial images were obtained from the level of the diaphragm to the pubic symphysis without intravenous or oral contrast. Coronal and sagittal reconstructions were likewise performed and indicated to increase the sensitivity for detecting clinically relevant pathology. CT scan was performed according to ALARA (as low as reasonable achievable). COMPARISON: None FINDINGS: The visualized lung bases are clear. Evaluation of the abdominal and pelvic visceral organs is limited without intravenous contrast. The unenhanced liver, spleen, pancreas, and adrenal glands are grossly unremarkable. The gallbladder is surgically absent. The kidneys are normal in size and attenuation without obvious calcification. There is no hydronephrosis or perinephric stranding. The ureters are normal in caliber. There are multiple colonic diverticula, without evdience of diverticulitis. No adenopathy or fluid collections are seen. No evidence of focal or diffuse bowel wall thickening or evidence of bowel obstruction is seen. The appendix is not visualized. The urinary bladder is normal in contour. Pelvic viscera are grossly unremarkable. No aggressive appearing osseous lesions are identified. Degenerative changes are identififed in the spine. There is age indeterminate compression deformity of the superior end plate of L1 vertebra with less than 10% loss of height. No retropulsion or canal stenosis. IMPRESSION: 1. No evidence of renal calculi / hydroureteronephrosis. 2. Multiple colonic diverticula, without evdience of diverticulitis. Electronically Signed by: Dr. Emmanuel Jain MD. (09/29/2023 21:33:33 EST)
[2023-09-29] MEDS ORDERED: GI COCKTAIL 45 ML (Maalox/Lidocaine) PO ONE (21:43)
[2023-09-29] MEDS ORDERED: XYLOCAINE VISCOUS 2% 15 ML CUP ONE (22:01)
[2023-09-29] MEDS ORDERED: MAALOX ES 30 ML UNIT DOSE ONE (22:01)
[2023-09-29] MEDS ORDERED: Zofran 4 MG/2 ML VIAL IV ONE (22:41)
[2023-09-29] MEDS ORDERED: MORPHINE SULFATE 2 MG INJ IV ONE (22:41)
[2023-09-29] MEDS ORDERED: NORCO 5/325 MG PO ONE (22:42)
[2023-09-29] MEDS ORDERED: MORPHINE SULFATE 2 MG INJ ONE (22:50)
[2023-09-29] MEDS ORDERED: Zofran 4 MG/2 ML VIAL ONE (22:50)
[2023-09-29] MEDS ORDERED: NORCO 5/325 MG ONE (22:50)
[2023-09-29 23:45] VITALS: BP 111/62; PULSE 74; RESP 16; O2SAT 95
--- NOTE | 2023-09-30 08:38 | XRAY ---
Indication: Bilateral rib pain. Comparison: July 31, 2022 Portable chest remains inflated and clear. Heart not enlarged. Bony thorax intact. No new/acute findings.
== END 2023-09-29 23:41 | disposition home or self-care (01) ==
LOC: ED 19:10
DX: R07.81 Pleurodynia (principal); R10.9 Unspecified abdominal pain; Z79.899 Other long term (current) drug therapy; Z28.310 Unvaccinated for COVID-19
CPT/HCPCS: 36000; 36415; 71045; 74176; 80053; 81001; 82150; 83690; 84484; 85025; 96374; 96375; 99284; J2270; J2405; A9270-GY